=== PATIENT | female | born 1985 | race Caucasian/White ===

== ENCOUNTER 2018-02-07 14:13 | Emergency (ER) | payer OTHER ==
[~2018-02-07] VITALS: Ht 165.1 cm; Wt 90.7 kg
[2018-02-07] MEDS ORDERED: AVIANE-28 TABL1 EACH PO (14:25)
== END 2018-02-07 17:39 | disposition designated cancer center or children's hospital (05) ==
LOC: ER 14:13
DX: H18.821 Corneal disorder due to contact lens, right eye (principal)

== ENCOUNTER 2020-07-18 15:50 | Outpatient (CLI) | payer OTHER ==
[~2020-07-18 15:50] MED LIST: AVIANE-28 TABL1 EACH PO
== END 2020-07-18 16:09 | disposition home or self-care (01) ==
LOC: OFIC 805 15:50
PROVIDERS: ATTEND Otolaryngology Otology & Neurotology
DX: H65.23 Chronic serous otitis media, bilateral (principal); H90.0 Conductive hearing loss, bilateral